=== PATIENT | male | born 1955 | race Caucasian/White ===

== ENCOUNTER 2017-04-10 11:10 | Observation (INO) | payer OTHER ==
[~2017-04-10] VITALS: Ht 185.4 cm; Wt 79.5 kg
[~2017-04-10 11:10] MED LIST: ASPIR 8181 M1 PO; FISH PO; LIPITOR80 MG PO
[2017-04-10 12:07] LABS: MCH 30.6 PG (29.0-34.0); MCHC 34.6 G/DL (30.0-36.0); MCV 88.4 FL (86-99); MEAN PLAT.VOLUME 9.9 uM^3 (9.0-12.4); PLATELET COUNT 232 K/uL (156-360); RBC DIS.WIDTH-CV 12.2 % (11.8-14.6); RBC DIS.WIDTH-SD 39.5 % (39-53); RED BLOOD COUNT 5.43 M/uL (4.00-5.50); WHITE BLOOD COUNT 8.4 K/uL (4.1-10.2)
[2017-04-10 12:18] LABS: CHLORIDE 102 mEq/L (99-109); POTASSIUM 4.4 mEq/L (3.7-5.4); SODIUM 137 mEq/L (136-147)
[2017-04-10 12:19] LABS: MAGNESIUM 2.1 mg/dL (1.3-2.7)
[2017-04-10 12:20] LABS: GLUCOSE 106 mg/dL (70-99)
[2017-04-10 12:22] LABS: ANION GAP 9 MEQ/L (2-14)
[2017-04-10 12:24] LABS: GFR ESTIMATE (CALCULATED) > 59 mL/min/
[2017-04-10 12:25] LABS: UREA NITROGEN (BUN) 15 mg/dL (9-23)
[2017-04-10 12:33] LABS: TROP-I INTERPRETATION NEGATIVE; TROPONIN-I < 0.01 ng/mL (0.0-0.30)
[2017-04-10] MEDS ORDERED: ALEVE220 MG PO (12:58)
[2017-04-10] MEDS ORDERED: RANITIDINE HCL150 MG PO (12:58)
[2017-04-10 15:30] VITALS: BP 110/68
[2017-04-10 20:04] VITALS: BP 110/61
[2017-04-10 20:13] LABS: TROP-I INTERPRETATION NEGATIVE; TROPONIN-I < 0.01 ng/mL (0.0-0.30)
[2017-04-10 23:43] VITALS: BP 119/69
[2017-04-11 01:25] LABS: TROP-I INTERPRETATION NEGATIVE; TROPONIN-I < 0.01 ng/mL (0.0-0.30)
[2017-04-11 04:00] VITALS: BP 102/56
[2017-04-11 08:08] VITALS: BP 119/67
[2017-04-11] MEDS ORDERED: LIDOCAINE700 MG TD (09:30)
== END 2017-04-11 10:21 | disposition home or self-care (01) ==
LOC: EME 11:10 → EDOF 14:21 → 5WEST 14:21 → EDOF 14:21 → 5WEST 15:24
PROVIDERS: Internal Medicine; Physician Assistant
DX: R07.89 Other chest pain (principal); I25.2 Old myocardial infarction; Z95.5 Presence of coronary angioplasty implant and graft; F17.200 Nicotine dependence, unspecified, uncomplicated; Z79.82 Long term (current) use of aspirin; I25.10 Atherosclerotic heart disease of native coronary artery without angina pectoris; E78.00 Pure hypercholesterolemia, unspecified; E78.5 Hyperlipidemia, unspecified; I10 Essential (primary) hypertension
CPT/HCPCS: 71010; 80048; 83735; 84484; 85027; 93005; 99281; 99285; G0378